=== PATIENT | male | born 1990 | race Native Hawaiian/Other Pacific Islander ===

== ENCOUNTER 2018-09-22 13:10 | Emergency (ER) | payer OTHER ==
[~2018-09-22] VITALS: Ht 185.4 cm; Wt 77.1 kg
[2018-09-22 13:20] VITALS: BP 129/81; TEMP 98.1
== END 2018-09-22 14:40 | disposition home or self-care (01) ==
LOC: ED 13:10
DX: F41.8 Other specified anxiety disorders (principal)

== ENCOUNTER 2019-11-18 13:03 | Emergency (ER) | payer OTHER ==
[~2019-11-18] VITALS: Ht 185.4 cm; Wt 77.1 kg
[2019-11-18 13:10] VITALS: BP 146/75; TEMP 99.3
== END 2019-11-18 14:48 | disposition home or self-care (01) ==
LOC: ED 13:03
PROC: 0HQLXZZ Repair Left Lower Leg Skin, External Approach (ICD-10-PCS; principal; 2019-11-18)
DX: S91.052A Open bite, left ankle, initial encounter (principal); S90.02XA Contusion of left ankle, initial encounter; S90.32XA Contusion of left foot, initial encounter; W54.0XXA Bitten by dog, initial encounter; Y92.89 Other specified places as the place of occurrence of the external cause
CPT/HCPCS: 90471; 90715; 96372; 99283; J0696; J7040

== ENCOUNTER 2019-11-27 13:38 | Emergency (ER) | payer OTHER ==
[~2019-11-27] VITALS: Ht 185.4 cm; Wt 92.5 kg
[2019-11-27 15:10] VITALS: BP 125/77; TEMP 98.4
== END 2019-11-27 15:10 | disposition home or self-care (01) ==
LOC: ED 13:38
DX: S91.052D Open bite, left ankle, subsequent encounter (principal); L08.9 Local infection of the skin and subcutaneous tissue, unspecified
CPT/HCPCS: 99282

== ENCOUNTER 2019-11-30 10:21 | Emergency (ER) | payer OTHER ==
[~2019-11-30] VITALS: Ht 185.4 cm; Wt 90.7 kg
[2019-11-30 10:27] VITALS: BP 142/81; TEMP 98.2
== END 2019-11-30 10:58 | disposition home or self-care (01) ==
LOC: ED 10:21
DX: Z48.00 Encounter for change or removal of nonsurgical wound dressing (principal)

== ENCOUNTER 2019-12-20 19:07 | Emergency (ER) | payer OTHER ==
[~2019-12-20] VITALS: Ht 185.4 cm; Wt 90.7 kg
[2019-12-20 19:08] VITALS: TEMP 97.5
[2019-12-20 19:40] LABS: PLATELET COUNT 389 K/uL (142-355)
[2019-12-20 19:47] LABS: POTASSIUM 4.3 mmol/L (3.6-5.2)
[2019-12-20 19:56] LABS: PARTIAL THROMBOPLASTIN TIME 22.3 SECONDS (24.5-33.6)
[2019-12-20 23:35] VITALS: BP 121/82
== END 2019-12-20 23:37 | disposition home or self-care (01) ==
LOC: ED 19:07
PROVIDERS: Hospitalist
PROC: 0T9B70Z Drainage of Bladder with Drainage Device, Via Natural or Artificial Opening (ICD-10-PCS; principal; 2019-12-20)
DX: E86.0 Dehydration (principal); S83.8X2A Sprain of other specified parts of left knee, initial encounter; V27.0XXA Motorcycle driver injured in collision with fixed or stationary object in nontraffic accident, initial encounter; Y35.893A Legal intervention involving other specified means, suspect injured, initial encounter; Y92.89 Other specified places as the place of occurrence of the external cause
CPT/HCPCS: 51702; 80053; 80307; 80320; 81000; 85027; 85610; 85730; 96360; 96361; 96375; 99284; J1885

== ENCOUNTER 2022-03-30 16:49 | Emergency (ER) | payer OTHER ==
[~2022-03-30] VITALS: Ht 185.4 cm; Wt 90.7 kg
[2022-03-30 16:56] VITALS: BP 120/67; TEMP 98.5
[2022-03-30 17:41] LABS: PLATELET COUNT 200 K/uL (142-355)
[2022-03-30 17:46] LABS: POTASSIUM 3.5 mmol/L (3.6-5.2)
== END 2022-03-30 17:25 | disposition left against medical advice (07) ==
LOC: ED 16:49
PROVIDERS: Emergency Medicine Emergency Medical Services
DX: U07.1 COVID-19 (principal); R51.9 Headache, unspecified; F15.11 Other stimulant abuse, in remission; Z11.52 Encounter for screening for COVID-19; Z53.29 Procedure and treatment not carried out because of patient's decision for other reasons
CPT/HCPCS: 36415; 80048; 85027; 87502; 87635; 99283; U0003

== ENCOUNTER 2022-04-01 15:33 | Emergency (ER) | payer OTHER | END 2022-04-01 15:40 | disposition home or self-care (01) | LOC: ED 15:33 | DX: Z53.21 Procedure and treatment not carried out due to patient leaving prior to being seen by health care provider (principal) | CPT/HCPCS: 99281 ==